=== PATIENT | female | born 1995 | race Caucasian/White ===

== ENCOUNTER 2019-05-10 15:03 | Emergency (ER) | payer SELFPAY ==
--- NOTE | 2019-05-10 16:25 | RAD REPORT ---
EXAM DESCRIPTION: RAD - Chest Pa And Lat (2 Views) - 05/10/2019 4:17 pm CLINICAL HISTORY: CHEST PAIN COMPARISON: No comparisons TECHNIQUE: Frontal and lateral views of the chest were obtained. FINDINGS: The lungs are clear. Heart size is normal and central vasculature is within normal limit s. No pleural effusion or pneumothorax seen. No acute bony finding noted. No aortic abnormality. IMPRESSION: No acute cardiopulmonary process.
[2019-05-10] MEDS ORDERED: LIDOCAINE VISCOUS 2% SOLN 15 ML UDC ONE (16:30)
[2019-05-10] MEDS ORDERED: MAGNE/ALUM HYDROXD 30 ML UCUP ONE (16:30)
--- NOTE | 2019-05-10 16:47 | ER ---
[facility] Name: Deborah Monroe Age: 23 yrs Sex: Female : 1995 Arrival Date: 05/10/2019 Time: 15:05 Bed 20 Private MD: Diagnosis: Chest pain, unspecified Presentation: 05/10 15:22 Presenting complaint: Patient states: "Chest pain on and off for the last week. At 430 ca1 this morning I woke up with it. It goes up to my shoulder blade and up my neck". Reports nausea. Denies cough and congestion. Transition of care: patient was not received from another setting of care. Onset of symptoms was May 10, 2019. Risk Assessment: Do you want to hurt yourself or someone else? Patient reports no desire to harm self or others. Initial Sepsis Screen: Does the patient meet any 2 criteria? No. Patient's initial sepsis screen is negative. Does the patient have a suspected source of infection? No. Patient's initial sepsis screen is negative. Care prior to arrival: None. 15:22 Method Of Arrival: Ambulatory ca1 15:22 Acuity: LAZARO 3 ca1 Historical: - Allergies: 15:25 No Known Allergies; ca1 - PMHx: 15:25 Endometrosis; Vasovagal Syncope; ca1 - PSHx: 15:25 Cholecystectomy; Appendectomy; ca1 - Immunization history:: Adult Immunizations up to date, Flu vaccine is up to date. - Coronavirus screen:: The patient has NOT traveled to [place], [place], or [place] in the past 14 days. The patient has NOT had contact with known/suspected case of Coronavirus?. - Social history:: Smoking status: Patient denies any tobacco usage or history of. - Ebola Screening: : Patient negative for fever greater than or equal to 101.5 degrees Fahrenheit, and additional compatible Ebola Virus Disease symptoms Patient denies exposure to infectious person Patient denies travel to an Ebola-affected area in the 21 days before illness onset No symptoms or risks identified at this time. Screenin:44 Abuse screen: Denies threats or abuse. Nutritional screening: No deficits noted. sv Tuberculosis screening: No symptoms or risk factors identified. Fall Risk None identified. Assessment: 16:36 General: Appears uncomfortable, slender, Behavior is calm, cooperative, Reports. Pain: sv Complains of pain in mid-sternal area, left lateral anterior chest and left side of neck Pain radiates to left arm Quality of pain is described as aching, Pain began 4 days ago Is intermittent, Alleviated by nothing. Neuro: Oriented to person, place, time, situation. Cardiovascular: Heart tones S1 S2 present Capillary refill < 3 seconds fingers. Respiratory: Respiratory effort is even, unlabored, Breath sounds are clear bilaterally. Parent/caregiver reports the patient having feels like fire when she breathes in. GI: Bowel sounds present X 4 quads. Abd is soft and non tender X 4 quads. Reports nausea. Derm: No signs and/or symptoms reported regarding the dermatologic system. 17:52 Reassessment: Patient appears in no apparent distress at this time. No changes from sv previously documented assessment. Patient and/or family updated on plan of care and expected duration. Pain level reassessed. Patient is alert, oriented x 3, equal unlabored respirations, skin warm/dry/pink. Vital Signs: 15:25 BP 119 / 71; Pulse 76; Resp 16 S; Temp 97.6(O); Pulse Ox 100% on R/A; Weight 46.72 kg ca1 (R); Height 5 ft. 2 in. (157.48 cm) (R); Pain 5/10; 15:25 Body Mass Index 18.84 (46.72 kg, 157.48 cm) ca1 ED Course: 15:05 Patient arrived in ED. as 15:24 Triage completed. ca1 15:25 Arm band placed on right wrist. EKG completed in triage. Results shown to MD. ca1 15:45 William Hawkins FNP-C [facility]. la1 15:45 Juno Gallagher MD is Attending Physician. la1 15:50 Maria Del Carmen Flores, JUAN CARLOS is Primary Nurse. sv 16:18 Chest Pa And Lat (2 Views) XRAY In Process Unspecified. EDMS 16:25 Urine --Ancillary (enter results) Sent. sv 16:25 Urine Dipstick--Ancillary (enter results) Sent. sv 16:44 Patient has correct armband on for positive identification. Bed in low position. Call sv light in reach. Adult w/ patient. Pulse ox on. NIBP on. 17:52 No provider procedures requiring assistance completed. Patient did not have IV access sv during this emergency room visit. Patient maintains SpO2 saturation greater than 95% on room air. Administered Medications: 16:30 Drug: GI Cocktail without - (Maalox Suspension 30 ml, Lidocaine Liquid 2 % 15 sv ml) Route: PO; 17:00 Follow up: Response: No adverse reaction sv 17:51 Drug: Zofran 4 mg Route: PO; sv 17:52 Follow up: Response: No adverse reaction; Medication administered at discharge. sv Outcome: 16:47 Discharge ordered by MD. rojas 17:52 Discharged to home ambulatory, with family. sv 17:52 Condition: stable 17:52 Discharge instructions given to patient, Instructed on discharge instructions, follow up and referral plans. medication usage, Demonstrated understanding of instructions, follow-up care, medications, Prescriptions given X 2. 17:52 Patient left the ED. sv Signatures: Dispatcher [employer] Maria Del Carmen Mcelroy RN RN sv Martinez, Amelia as Attema, Lee, LICENSED MARINE ENGINEER-C LICENSED MARINE ENGINEER-Cla1 Janet Beckham RN RN ca1
--- NOTE | 2019-05-10 16:47 | EDPHYS ---
Physician Documentation [facility] Name: Deborah Monroe Age: 23 yrs Sex: Female : 1995 Arrival Date: 05/10/2019 Time: 15:05 Bed 20 Private MD: PREET Physician Juno Gallagher HPI: 05/10 16:38 This 23 yrs old Female presents to ER via Ambulatory with complaints of Chest la1 Pain, Nausea. 16:38 The patient or guardian reports chest pain that is located primarily in the anterior la1 chest wall, left. The pain radiates to the left shoulder, Associated signs and symptoms: Pertinent negatives: abdominal pain, cough, diaphoresis, dizziness, lightheadedness, near syncope, palpitations, recent travel, shortness of breath. The chest pain is described as sharp. Duration: The patient or guardian reports a single episode, that is still ongoing. Modifying factors: The symptoms are alleviated by nothing. the symptoms are aggravated by nothing. Severity of pain: At its worst the pain was moderate. The patient has not experienced similar symptoms in the past. pt reports intermittent chest pain for "a while" but persistent since waking up this morning, pt reports a constant sharp pain in the left anterior chest, has taken pepto at home which did not help. No SOB, no palpitations, no syncope/near syncope.. Historical: - Allergies: 15:25 No Known Allergies; ca1 - PMHx: 15:25 Endometrosis; Vasovagal Syncope; ca1 - PSHx: 15:25 Cholecystectomy; Appendectomy; ca1 - Immunization history:: Adult Immunizations up to date, Flu vaccine is up to date. - Coronavirus screen:: The patient has NOT traveled to [place], [place], or [place] in the past 14 days. The patient has NOT had contact with known/suspected case of Coronavirus?. - Social history:: Smoking status: Patient denies any tobacco usage or history of. - Ebola Screening: : Patient negative for fever greater than or equal to 101.5 degrees Fahrenheit, and additional compatible Ebola Virus Disease symptoms Patient denies exposure to infectious person Patient denies travel to an Ebola-affected area in the 21 days before illness onset No symptoms or risks identified at this time. ROS: 16:40 Constitutional: Negative for fever, chills, and weight loss, Eyes: Negative for injury, la1 pain, redness, and discharge, ENT: Negative for injury, pain, and discharge, Neck: Negative for injury, pain, and swelling. 16:40 Respiratory: Negative for shortness of breath, cough, wheezing, and pleuritic chest pain, Abdomen/GI: Negative for abdominal pain, nausea, vomiting, diarrhea, and constipation, Back: Negative for injury and pain, MS/Extremity: Negative for injury and deformity, Neuro: Negative for headache, weakness, numbness, tingling, and seizure, Endocrine: Negative for neck swelling, polydipsia, polyuria, polyphagia, and marked weight changes. 16:40 Cardiovascular: Positive for chest pain, of the anterior aspect of left upper chest. Exam: 16:41 Constitutional: This is a well developed, well nourished patient who is awake, alert, la1 and in no acute distress. Eyes: Periorbital areas with no swelling, redness, or edema. ENT: Mucous membranes moist. Neck: Trachea midline Chest/axilla: Normal chest wall appearance and motion. Nontender with no deformity. No lesions are appreciated. Cardiovascular: Regular rate and rhythm with a normal S1 and S2. No gallops, murmurs, or rubs. Normal PMI, no JVD. No pulse deficits. Respiratory: Lungs have equal breath sounds bilaterally, clear to auscultation Skin: Warm, dry with normal turgor. Normal color with no rashes, no lesions, and no evidence of cellulitis. MS/ Extremity: no cyanosis. Neurovascular intact. Neuro: Awake and alert, GCS 15, oriented to person, place, time, and situation. Normal gait. Vital Signs: 15:25 BP 119 / 71; Pulse 76; Resp 16 S; Temp 97.6(O); Pulse Ox 100% on R/A; Weight 46.72 kg ca1 (R); Height 5 ft. 2 in. (157.48 cm) (R); Pain 5/10; 15:25 Body Mass Index 18.84 (46.72 kg, 157.48 cm) ca1 MDM: 15:45 Patient medically screened. la1 16:42 Differential diagnosis: anxiety, chest wall pain, costochondritis, esophagitis, la1 gastritis, gastroesophageal reflux disease (GERD). Data reviewed: vital signs, nurses notes, EKG, radiologic studies, and as a result, I will discharge patient. Data interpreted: Pulse oximetry: on room air is 100 %. Interpretation: normal. Counseling: I had a detailed discussion with the patient and/or guardian regarding: radiology results, the need for outpatient follow up, a family practitioner, to return to the emergency department if symptoms worsen or persist or if there are any questions or concerns that arise at home. Special discussion: Based on the patient's history, exam, and Dx evaluation, there is no indication for emergent intervention or inpatient Tx. It is understood by the patient/guardian that if the Sx's persist or worsen they need to return immediately for re-evaluation. 05/10 16:24 Order name: Urine Dipstick--Ancillary (enter results) bd 05/10 16:24 Order name: Urine --Ancillary (enter results) bd 05/10 15:57 Order name: Chest Pa And Lat (2 Views) XRAY; Complete Time: 16:31 la1 Administered Medications: 16:30 Drug: GI Cocktail without - (Maalox Suspension 30 ml, Lidocaine Liquid 2 % 15 sv ml) Route: PO; 17:00 Follow up: Response: No adverse reaction sv 17:51 Drug: Zofran 4 mg Route: PO; sv 17:52 Follow up: Response: No adverse reaction; Medication administered at discharge. sv Disposition: 05/11 07:19 I agree with the assessment and plan of care. rachael Disposition: 05/10/19 16:47 Discharged to Home. Impression: Chest pain, unspecified. - Condition is Stable. - Discharge Instructions: Nonspecific Chest Pain, Chest Wall Pain, Gastritis, Adult. - Prescriptions for Zofran 4 mg Oral Tablet - take 1 tablet by ORAL route every 12 hours As needed; 6 tablet. Pepcid 20 mg Oral Tablet - take 1 tablet by ORAL route once daily for 10 days; 10 tablet. - Medication Reconciliation Form, Thank You Letter form. - Follow up: Private Physician; When: 2 - 3 days; Reason: Recheck today's complaints, Re-evaluation by your physician. Follow up: Emergency Department; When: As needed; Reason: Worsening of condition. - Problem is new. - Symptoms are unchanged. Signatures: Dispatcher [employer] Maria Del Carmen Mcelroy RN RN sv Anderson, Corey, MD MD cha Attema, Lee, ECONOMIC RESEARCH ASSISTANT-C ECONOMIC RESEARCH ASSISTANT-Cla1 Acob, Janet, RN RN ca1 Corrections: (The following items were deleted from the chart) 05/10 17:52 16:47 05/10/2019 16:47 Discharged to Home. Impression: Chest pain, unspecified. sv Condition is Stable. Forms are Medication Reconciliation Form, Thank You Letter, Antibiotic Education, Prescription Opioid Use. Follow up: Private Physician; When: 2 - 3 days; Reason: Recheck today's complaints, Re-evaluation by your physician. Follow up: Emergency Department; When: As needed; Reason: Worsening of condition. Problem is new. Symptoms are unchanged. la1
[2019-05-10] MEDS ORDERED: ONDANSETRON 4 MG (ODT) TAB ONE (17:41)
[2019-05-10 17:59] LABS: Urine Blood NEGATIVE (NEG); Urine Glucose NEGATIVE (NEG); Urine Protein NEGATIVE (NEG); Urine Specific Gravity 1.015 (1.005-1.030)
[2019-05-10 18:03] VITALS: BP 119/71; TEMP 97.6; O2SAT 100
--- NOTE | 2019-05-11 09:40 | EKG ---
Test Date: 2019-05-10 Test Time: 15:29:42 Technical Support Manager: RYAN MEASUREMENT RESULTS: Intervals: Rate: 76 UT: 140 QRSD: 84 QT: 388 QTc: 436 [place]: P: 65 UT: 140 QRS: 62 T: 44 INTERPRETIVE STATEMENTS: Normal sinus rhythm Normal ECG No previous ECG available for comparison Electronically Signed On 05-11-19 09:39:45 RN CLINICIAN by Adolfo Light
== END 2019-05-10 17:52 | disposition home or self-care (01) ==
LOC: ER 15:03
DX: R07.9 Chest pain, unspecified (principal)
CPT/HCPCS: 71046; 81003; 81025; 93005; 99284

== ENCOUNTER 2019-07-04 11:48 | Emergency (ER) | payer SELFPAY ==
[2019-07-04] MEDS ORDERED: NA CHLORIDE 0.9% 1,000 ML ONE (12:27)
[2019-07-04] MEDS ORDERED: ONDANSETRON 4 MG/2 ML VIAL ONE (12:27)
[2019-07-04] MEDS ORDERED: MORPHINE 4 MG/ML SYR ONE (12:27)
[2019-07-04 12:28] LABS: Absolute Lymphocytes (CBC) 1.5 K/uL (0.7-4.9); Basophils % 0.6 % (0-1.3); Hematocrit 38.7 % (36.0-45.0); Lymphocytes % 27.6 % (15.3-44.8); RBC Red Blood Cell Count 4.28 M/uL (3.86-4.86)
[2019-07-04 12:37] LABS: Urine Blood TRACE (NEG); Urine Glucose NEGATIVE (NEG); Urine Protein NEGATIVE (NEG); Urine Specific Gravity 1.015 (1.005-1.030); Urine pH 5.5 (5.0-7.0)
[2019-07-04 12:44] LABS: ALT/SGPT 40 U/L (12-78); AST/SGOT 30 U/L (15-37); Albumin 4.3 g/dL (3.4-5.0); Alkaline Phosphatase 81 U/L (45-117); BUN Blood Urea Nitrogen 11 mg/dL (7-18); Bicarbonate 28 mmol/L (21-32); Bilirubin Direct 0.2 mg/dL (0-0.2); Bilirubin Total 0.5 mg/dL (0.2-1.0); Glucose Level 95 mg/dL (74-106); Lipase 141 U/L (73-393); Potassium 3.7 mmol/L (3.5-5.1); Protein, Total 7.6 g/dL (6.4-8.2); Sodium Level 142 mmol/L (136-145)
--- NOTE | 2019-07-04 13:30 | RAD REPORT ---
EXAM DESCRIPTION: CT - Abdomen Pelvis W Contrast - 07/04/2019 1:13 pm CLINICAL HISTORY: ABD PAIN, prior appendectomy and cholecystectomy COMPARISON: No comparisons TECHNIQUE: Biphasic, helical CT imaging of the abdomen and pelvis was performed following 100 ml non -ionic IV contrast. No oral contrast. All CT scans are performed using dose optimization technique as appropriate and may include automated exposure control or mA/KV adjustment according to patient size. FINDINGS: No suspicious findings in the lung bases. Liver size is normal. No focal liver parenchymal process. Patient has a prominent periportal edema pa ttern. This is a nonspecific finding that can be seen with hepatitis or acute hepatic parenchymal dis ease. This can also be a response to a systemic process that is not otherwise evident on this examina tion. Gallbladder is absent. Biliary tree within normal limits for a post cholecystectomy patient. No pneumobilia is seen. Duct stones can be occult. Spleen and pancreas show no suspicious findings. Symmetric renal function is seen with no hydronephrosis or suspicious renal mass. No pyelonephritis o r acute parenchymal process. No bladder abnormalities. No adrenal abnormalities. No gastric dilatation or gastric wall thickening. No dilated large or small bowel loops. The appendix is absent by history. Is significant, acute bowel process is not identifiable. Mild enteritis change s can be present an occult. No free air or pneumatosis. Trace free fluid in the cul de sac is within physiologic limits. Uterus a nd ovaries show no suspicious findings. No hernia, mass or bulky lymphadenopathy. No suspicious bony findings. IMPRESSION: The liver shows a prominent periportal edema pattern. This is nonspecific finding which can be seen with hepatitis or acute hepatic parenchymal disease. This can also occur with a systemic process that is not otherwise evident on this examination. Status post cholecystectomy with biliary tree within normal range. No acute GI, IMMIGRATION ASSOCIATE or process identifiable.
[2019-07-04] MEDS ORDERED: LIDOCAINE VISCOUS 2% SOLN 15 ML UDC ONE (14:39)
[2019-07-04] MEDS ORDERED: MAGNE/ALUM HYDROXD 30 ML UCUP ONE (14:39)
--- NOTE | 2019-07-04 14:39 | EDPHYS ---
Physician Documentation [facility] Name: Deborah Monroe Age: 24 yrs Sex: Female : 1995 Arrival Date: 07/04/2019 Time: 11:57 Bed 23 Private MD: ED Physician Alexander Antoine HPI: 07/03 12:13 This 24 yrs old Female presents to ER via Ambulatory with complaints of rn Abdominal Pain. 12:13 The patient presents with abdominal pain in the epigastric area. rn 12:13 Onset: The symptoms/episode began/occurred 3 day(s) ago. The symptoms radiate to back. rn Associated signs and symptoms: Pertinent positives: nausea and vomiting, Pertinent negatives: blood in stools, chest pain, fever. The symptoms are described as intermittent, sharp. Modifying factors: The symptoms are alleviated by nothing, the symptoms are aggravated by food, touching the area. Severity of pain: At its worst the pain was moderate. The patient has experienced similar episodes in the past. Reports has been told has pancreatitis in past, is from out of town, has had gallbladder removed and appendix removed. No fever. + vomiting.. 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 - Social history:: Smoking status: Patient denies any tobacco usage or history of. - Family history:: not pertinent. - Hospitalizations: : No recent hospitalization is reported. ROS: 12:13 Constitutional: Negative for fever, chills, and weight loss, Eyes: Negative for injury, rn pain, redness, and discharge, Neck: Negative for injury, pain, and swelling, Cardiovascular: Negative for chest pain, palpitations, and edema, Respiratory: Negative for shortness of breath, cough, wheezing, and pleuritic chest pain, Abdomen/GI: + epigastric abd pain and vomiting, + diarrhea MS/Extremity: Negative for injury and deformity, Skin: Negative for injury, rash, and discoloration, Neuro: Negative for headache, weakness, numbness, tingling, and seizure. Exam: 12:13 Constitutional: This is a well developed, well nourished patient who is awake, alert, rn crying Head/Face: Normocephalic, atraumatic. ENT: MMM Cardiovascular: Regular rate and rhythm. No pulse deficits. Respiratory: No increased work of breathing, no retractions or nasal flaring. Abdomen/GI: soft, + epigastric tenderness and RUQ tenderness, no rebound Skin: Warm, dry MS/ Extremity: Pulses equal, no cyanosis. Neuro: Awake and alert, GCS 15 Vital Signs: 12:00 BP 118 / 85; Pulse 80; Resp 17 S; Temp 98(TE); Pulse Ox 100% on R/A; Weight 43.09 kg ca1 (R); Height 5 ft. 3 in. (160.02 cm) (R); Pain 9/10; 12:57 BP 105 / 74; Pulse 70; Resp 18; Pulse Ox 100% on R/A; wh 14:30 BP 100 / 71; Pulse 70; Resp 18; Pulse Ox 100% on R/A; wh 12:00 Body Mass Index 16.83 (43.09 kg, 160.02 cm) ca1 MDM: 12:04 Patient medically screened. rn 14:32 Differential diagnosis: Endometriosis, gastritis, gastroesophageal reflux disease, rn non-specific abd pain, pancreatitis, Peptic Ulcer Disease. Data reviewed: vital signs, nurses notes, lab test result(s), radiologic studies, CT scan, and as a result, I will discharge patient. Counseling: I had a detailed discussion with the patient and/or guardian regarding: the historical points, exam findings, and any diagnostic results supporting the discharge/admit diagnosis, lab results, radiology results, the need for outpatient follow up, to return to the emergency department if symptoms worsen or persist or if there are any questions or concerns that arise at home. Response to treatment: the patient's symptoms have markedly improved after treatment, and as a result, I will discharge patient. Special discussion: Based on the patient's Hx, exam, and Dx evaluation, there is no indication for emergent surgery or inpatient Tx. It is understood by the patient/guardian that if the Sx's persist or worsen they need to return immediately for re-evaluation. I discussed with the patient/guardian in detail that at this point there is no indication for admission to the hospital. It is understood, however, that if the symptoms persist or worsen the patient needs to return immediately for re-evaluation. Based on the history and exam findings, there is no indication for further emergent testing or inpatient evaluation. I discussed with the patient/guardian the need to see the seamless tube roller for further evaluation of the symptoms. ED course: No acute findings on CT or bloodwork, normal lipase, normal LFTs, will dc home as either mild pancreatitis vs gastritis vs PUD. Recommend f/u with GI for scope.. 14:32 ED course: NO prescriptions found in [facility]. . rn 07/03 12:11 Order name: Basic Metabolic Panel; Complete Time: 12:45 07/03 12:11 Order name: CBC with Diff; Complete Time: 12:45 07/03 12:11 Order name: Creatinine for Radiology; Complete Time: 14:24 07/03 12:11 Order name: Hepatic Function; Complete Time: 12:45 07/03 12:11 Order name: Lipase; Complete Time: 12:45 07/03 12:31 Order name: Urine Dipstick--Ancillary (enter results) 07/03 12:11 Order name: CT Abd/Pelvis - IV Contrast Only 07/03 12:31 Order name: Urine --Ancillary (enter results) 07/03 12:37 Order name: Urine --Ancillary [facility] 07/03 12:37 Order name: Urine Dipstick-Ancillary [facility] 07/03 12:11 Order name: IV Saline Lock; Complete Time: 12:27 07/03 12:11 Order name: Labs collected and sent; Complete Time: 12:27 07/03 12:11 Order name: Urine Test (obtain specimen); Complete Time: 12:26 07/03 12:11 Order name: Urine Dipstick-Ancillary (obtain specimen); Complete Time: 12:26 rn Administered Medications: 12:21 Drug: NS 0.9% 1000 ml Route: IV; Rate: 1000 ml; Site: right antecubital; 15:10 Follow up: Response: No adverse reaction; IV Status: Completed infusion 12:23 Drug: morphine 4 mg {Note: RASS 0.} Route: IVP; Site: right antecubital; 15:11 Follow up: Response: No adverse reaction; Pain is decreased; RASS: Alert and Calm (0) 12:25 Drug: Zofran (Ondansetron) 4 mg Route: IVP; Site: right antecubital; 15:11 Follow up: Response: No adverse reaction; Nausea is decreased 14:37 Drug: GI Cocktail without - (Maalox Suspension 30 ml, Lidocaine Liquid 2 % 15 wh ml) Route: PO; 15:10 Follow up: Response: No adverse reaction; Pain is decreased Disposition: 07/04/19 14:37 Discharged to Home. Impression: Upper abdominal pain, unspecified. - Condition is Stable. - Discharge Instructions: Abdominal Pain, Adult, Gastritis, Adult, Chronic Pancreatitis. - Prescriptions for Zofran ODT 4 mg Oral tablet,disintegrating - place 1 tablet by TRANSLINGUAL route every 8 hours As needed; 20 tablet. Protonix 40 mg Oral Tablet - take 1 tablet by ORAL route once daily; 30 tablet. Tramadol 50 mg Oral Tablet - take 1 tablet by ORAL route every 8 hours as needed; 20 tablet. - Medication Reconciliation Form, Thank You Letter, Antibiotic Education, Prescription Opioid Use form. - Follow up: Darien Cifuentes MD; When: As needed; Reason: Recheck today's complaints, Re-evaluation by your physician. - Problem is an ongoing problem. - Symptoms have improved. Signatures: Dispatcher [employer] EDMS Alexander Antoine MD MD rn [place], [facility] Abran, JUAN CARLOS Gonzales RN ca1 Corrections: (The following items were deleted from the chart) 15:38 14:37 07/04/2019 14:37 Discharged to Home. Impression: Upper abdominal pain, wh unspecified. Condition is Stable. Forms are Medication Reconciliation Form, Thank You Letter, Antibiotic Education, Prescription Opioid Use. Follow up: Darien Cifuentes; When: As needed; Reason: Recheck today's complaints, Re-evaluation by your physician. Problem is an ongoing problem. Symptoms have improved. rn
--- NOTE | 2019-07-04 14:39 | ER ---
Nurse's Notes [facility] Name: Deborah Monroe Age: 24 yrs Sex: Female : 1995 Arrival Date: 07/04/2019 Time: 11:57 Bed 23 Private MD: Diagnosis: Upper abdominal pain, unspecified Presentation: 07/03 12:00 Chief complaint: Patient states: Upper abdominal pain that goes to the back started ca1 Thursday. Reports N/V/Diarrhea. Denies fever. Coronavirus screen: Patient denies fever greater than 100.4F, cough, shortness of breath, or difficulty breathing. Proceed with normal triage process. Ebola Screen: Patient negative for fever greater than or equal to 101.5 degrees Fahrenheit, and additional compatible Ebola Virus Disease symptoms Patient denies exposure to infectious person. Patient denies travel to an Ebola-affected area in the 21 days before illness onset. No symptoms or risks identified at this time. Initial Sepsis Screen: Does the patient meet any 2 criteria? No. Patient's initial sepsis screen is negative. Does the patient have a suspected source of infection? No. Patient's initial sepsis screen is negative. Risk Assessment: Do you want to hurt yourself or someone else? Patient reports no desire to harm self or others. Onset of symptoms was July 04, 2019. 12:00 Method Of Arrival: Ambulatory ca1 12:00 Acuity: LAZARO 3 ca1 THIRD HELPER: 12:03 [facility] 06/29/2019 ca1 Historical: - Allergies: 12:03 No Known Allergies; ca1 - Home Meds: 12:03 None [Active]; ca1 - PMHx: 12:03 Endometrosis; vasovagal syncope; ca1 - PSHx: 12:03 Cholecystectomy; Appendectomy; ca1 - Immunization history:: Adult Immunizations up to date, Flu vaccine is up to date. - Social history:: Smoking status: Patient denies any tobacco usage or history of. - Family history:: not pertinent. - Hospitalizations: : No recent hospitalization is reported. Screenin:57 Abuse screen: Denies threats or abuse. Denies injuries from another. Nutritional wh screening: No deficits noted. Tuberculosis screening: No symptoms or risk factors identified. Fall Risk None identified. Assessment: 12:10 General: Appears in no apparent distress. uncomfortable, Behavior is calm, cooperative, wh appropriate for age. Pain: Complains of pain in epigastric area, right upper quadrant and left upper quadrant Pain radiates to back Pain currently is 8 out of 10 on a pain scale. Quality of pain is described as piercing, Is intermittent. Neuro: Level of Consciousness is awake, alert, obeys commands, Oriented to person, place, time, situation, Appropriate for age. Cardiovascular: Heart tones S1 S2. Respiratory: Airway is patent Respiratory effort is even, unlabored, Respiratory pattern is regular, symmetrical, Breath sounds are clear bilaterally. GI: Abdomen is flat, non-distended, Bowel sounds present X 4 quads. Abd is soft Abdomen is tender to palpation in epigastric area, right upper quadrant and left upper quadrant Reports upper abdominal pain. : No signs and/or symptoms were reported regarding the genitourinary system. EENT: No signs and/or symptoms were reported regarding the EENT system. Derm: Skin is intact, is healthy with good turgor, Skin is pink, warm \T\ dry. normal. Musculoskeletal: Circulation, motion, and sensation intact. 12:57 Reassessment: Patient appears in no apparent distress at this time. No changes from previously documented assessment. Patient and/or family updated on plan of care and expected duration. Pain level reassessed. Patient is alert, oriented x 3, equal unlabored respirations, skin warm/dry/pink. 14:30 Reassessment: Patient appears in no apparent distress at this time. No changes from previously documented assessment. Patient and/or family updated on plan of care and expected duration. Pain level reassessed. Patient is alert, oriented x 3, equal unlabored respirations, skin warm/dry/pink. 15:09 Reassessment: Pt with DC order just awaiting Ct official reading copy. 15:38 Reassessment: CT imaging disc provided to Pt. Vital Signs: 12:00 BP 118 / 85; Pulse 80; Resp 17 S; Temp 98(TE); Pulse Ox 100% on R/A; Weight 43.09 kg ca1 (R); Height 5 ft. 3 in. (160.02 cm) (R); Pain 9/10; 12:57 BP 105 / 74; Pulse 70; Resp 18; Pulse Ox 100% on R/A; 14:30 BP 100 / 71; Pulse 70; Resp 18; Pulse Ox 100% on R/A; wh 12:00 Body Mass Index 16.83 (43.09 kg, 160.02 cm) ca1 ED Course: 11:57 Patient arrived in ED. am2 12:02 Triage completed. ca1 12:03 Bashir Dailey is Primary Nurse. wh 12:03 Alexander Antoine MD is Attending Physician. rn 12:03 Arm band placed on right wrist. ca1 12:15 Inserted saline lock: 20 gauge in right antecubital area, using aseptic technique. Blood collected. 12:32 Urine collected: clean catch specimen, clear, bridget colored. lt1 12:58 Patient has correct armband on for positive identification. Bed in low position. Call light in reach. Side rails up X 1. Pulse ox on. NIBP on. 13:08 Urine --Ancillary (enter results) Sent. jp3 13:08 Urine Dipstick--Ancillary (enter results) Sent. jp3 13:15 CT Abd/Pelvis - IV Contrast Only In Process Unspecified. EDMS 14:37 Darien Cifuentes MD is Referral Physician. rn 15:10 No provider procedures requiring assistance completed. IV discontinued, intact, bleeding controlled, No redness/swelling at site. Administered Medications: 12:21 Drug: NS 0.9% 1000 ml Route: IV; Rate: 1000 ml; Site: right antecubital; 15:10 Follow up: Response: No adverse reaction; IV Status: Completed infusion 12:23 Drug: morphine 4 mg {Note: RASS 0.} Route: IVP; Site: right antecubital; 15:11 Follow up: Response: No adverse reaction; Pain is decreased; RASS: Alert and Calm (0) 12:25 Drug: Zofran (Ondansetron) 4 mg Route: IVP; Site: right antecubital; 15:11 Follow up: Response: No adverse reaction; Nausea is decreased 14:37 Drug: GI Cocktail without - (Maalox Suspension 30 ml, Lidocaine Liquid 2 % 15 wh ml) Route: PO; 15:10 Follow up: Response: No adverse reaction; Pain is decreased Outcome: 14:37 Discharge ordered by MD. rn 15:23 Discharged to home ambulatory. 15:23 Condition: stable 15:23 Discharge instructions given to patient, Instructed on discharge instructions, follow up and referral plans. no drinking with medication, no driving heavy equipment, medication usage, POC Demonstrated understanding of instructions, follow-up care, medications, POC Prescriptions given X 3. 15:38 Patient left the ED. Signatures: Dispatcher [employer] EDMS Alexander Antoine MD MD rn Shabnam Santo am2 Bashir Dailey Moisés Dickerson jp3 Janet Beckham RN RN Kisha Arredondo lt1
[2019-07-04 15:57] VITALS: TEMP 98; O2SAT 100
[2019-07-04 16:00] VITALS: BP 100/71
== END 2019-07-04 15:38 | disposition home or self-care (01) ==
LOC: ER 11:48
DX: R10.13 Epigastric pain (principal)
CPT/HCPCS: 36415; 74177; 80048; 80076; 81003; 81025; 83690; 85025; 96361; 96374; 96375; 99284; J2405; J7030; Q9967